=== PATIENT | male | born 1960 | race Caucasian/White ===

== ENCOUNTER 2021-04-28 01:03 | Outpatient (CLI) | payer BC, SELFPAY ==
[2021-04-28 10:57] LABS: Source Nasal/Nares
[2021-04-28 19:09] LABS: COVID-19 PCR Negative (Negative)
== END 2021-04-28 01:04 | disposition home or self-care (01) ==
LOC: LBO 01:04
PROVIDERS: PCP Family Medicine; Visit Provider Ophthalmology
DX: Z20.822 Contact with and (suspected) exposure to COVID-19 (principal); Z01.818 Encounter for other preprocedural examination
CPT/HCPCS: 87635

== ENCOUNTER 2021-05-01 11:11 | Day surgery (SDC) | payer BC, SELFPAY ==
[2021-05-01] MEDS: Tropicam./Phenyleph. (1/2.5%) 5 ML BTL OD ×3 (11:42→11:56)
[2021-05-01 11:44] VITALS: BP 137/81; PULSE 82; RESP 16; TEMP 36.8; O2SAT 97
--- NOTE | 2021-05-01 11:52 | W.ANESPRE ---
General Info Date of Service Date Performed: 05/01/21 Height: 5 ft 11 in Weight: 111.5 kg Body Mass Index (BMI): 34.2 Surgical Procedure: Operation Date: 05/01/21 14:40 Proposed Procedures Side Surgeon p Cataract Extraction with IOL Implant Right Chris Hernández MD Meds Allergies and Home Medications Allergies Allergy/AdvReac Type Severity Reaction Status Date / Time No Known Allergies Allergy Unverified 05/01/21 11:39 Home Medication Medication Instructions Recorded fenofibrate 160 mg PO DAILY 04/27/21 latanoprost 1 drp OPHTHALMIC (EYE) HS 04/27/21 lisinopril-hydrochlorothiazide 1 tab PO DAILY 04/27/21 multivitamin 1 tab PO DAILY 04/27/21 tamsulosin 0.8 mg PO HS 04/27/21 Current Visit Medications: Current Medications Generic Name Dose Route Start Last Admin Trade Name Freq PRN Reason Stop Dose Admin Acetaminophen 1,000 mg 05/01/21 06:00 Acetaminophen 500 Mg Tab PO Q4H PRN PRN Miscellaneous Medication 0 ml 05/01/21 06:00 Prednisolone 1%, Moxifloxacin 0.5%, Nepafenac 0.1% 5ml Btl OD DIRECTED ABDON Miscellaneous Medication 0 ml 05/01/21 06:00 05/01/21 11:47 Tropicam./Phenyleph. (1/2.5%) 5 Ml Btl OD 1 drp DIRECTED ABDON Administration Tetracaine HCl 0 ml 05/01/21 06:00 Tetracaine 0.5% 4 Ml Btl OD DIRECTED ABDON PFSH Medical History Medical History Actinic keratosis Enlarged prostate Pretty type 2a hyperlipoproteinemia Glaucoma Hypertensive disorder Knee pain Major depressive disorder, recurrent episode, in full remission Nicotine dependence Obesity Verruca vulgaris Surgical History Surgical History Hx of cataract surgery Hx of colonoscopy Tobacco Smoking/Tobacco Use Status: Current every day Tobacco Type: cigarettes Alcohol Alcohol Intake: never Substance Use Substance use: Never Substance use type: does not use Vital Signs and Lab Results Vital Signs Most Recent Vital Signs in EMR: Most Recent Vital Signs Temp Pulse Resp BP Pulse Ox 36.8 C 82 16 137/81 97 05/01/21 11:44 05/01/21 11:44 05/01/21 11:44 05/01/21 11:44 05/01/21 11:44 Lab Results Blood Type / Crossmatch: No Data to Display Complete Blood Count: No Data to Display Complete Metabolic Panel: No Data to Display Liver Function Panel: No Data to Display Coagulation Panel: No Data to Display Cardiac Panel: No Data to Display Arterial Blood Gas: No Data to Display Venous Blood Gas: No Data to Display Pancreas Panel: No Data to Display Thyroid Panel: No Data to Display Infectious Disease: Coronavirus (COVID-19)(PCR) Negative (Negative) 04/28/21 10:33 04/28/21 Coronavirus 2019 Source Nasal/Nares 04/28/21 10:33 04/28/21 Blood Cultures: No Data to Display Toxicology Panel: No Data to Display Anesthesia Assessment and Plan Anesthesia History Personal History: No History of Anesthesia Complications Family History: No Family History of Anesthesia Complications Exercise Tolerance Exercise Tolerance: Metabolic Equivalents>4 Pertinent Negatives Pertinent Negatives: No Symptoms of GERD Cardiac & Pulmonary Exam Cardiac Exam: Normal S1/S2 Heart Sounds Pulmonary Exam: Clear Bilateral Breath Sounds Implantable Cardiac Device Does patient have a Pacemaker or an ICD?: No Airway Exam Known Difficult Airway: No Mallampati Class: 3 Mouth Opening: Normal (> 3cm) Thyromental Distance: Greater than 3 cm Neck Range of Motion: Full ROM Neck Circumference: Normal Teeth Condition: Normal Dentition and Removable Dentures/Plates Upper ASA Classification ASA Score: ASA 2 Emergency Case?: No NPO Status NPO Status: NPO Clears >2 hours, Solids >8 hours Anesthesia Plan Resuscitation Status: Full Code Anesthesia Technique: MAC Anesthesia Airway Planned: Natural Airway Monitors Used: Standard Monitors
[2021-05-01 11:54] VITALS: BMI 34.2
[2021-05-01] MEDS: Tetracaine 0.5% 4 ML BTL OD (12:37)
[2021-05-01] MEDS: Balanced Salt Soln.-PLUS 500 ML BAG (12:38)
[2021-05-01] MEDS: Lidocaine 2% Jelly 6 ML SYR (12:38)
[2021-05-01] MEDS: Duovisc Viscoelastic System EACH 1 EACH (12:38)
[2021-05-01] MEDS: Povidone-Iodine Ophth 30 ML BTL (12:40)
[2021-05-01 12:57] VITALS: BP 144/78; PULSE 78; RESP 16; TEMP 37; O2SAT 93
--- NOTE | 2021-05-01 12:57 | W.PM.DSUDISC ---
Discharge Plan Disposition Patient Disposition: HOME Condition: Good Discharge Details Attending Provider: Chris Hernández Primary Care Provider: Daquan Li [place] Meds and New Rx's Prescriptions: No Action multivitamin Tablet 1 tab PO DAILY RF: 0 latanoprost 0.005 % Drops 1 drp ophthalmic (eye) HS RF: 0 tamsulosin 0.4 mg Capsule 0.8 mg PO HS RF: 0 lisinopril-hydrochlorothiazide 20-25 mg Tablet 1 tab PO DAILY RF: 0 fenofibrate 160 mg Tablet 160 mg PO DAILY RF: 0 Discharge Instructions Stand Alone Forms: Post-op Topical Cataract, Fernando Andres (DSU) Discharge Orders Discharge Orders: Discharge Order (Routine); Ordered 05/01/21 Ordered By: Chris Hernández DS: Diagnosis Discharge Diagnosis (1) Nuclear sclerotic cataract of right eye: Status: Resolved
--- NOTE | 2021-05-01 12:58 | ROE_ITS ---
Date of service: 05/01/21 Time of Service: 12:58 Operative Note Operative Note DATE OF PROCEDURE: 05/01/21 PRE-OP DIAGNOSIS: Nuclear cataract, right eye POST-OP DIAGNOSIS: same PROCEDURE: Cataract extraction using phacoemulsification with intraocular lens implant, right eye SURGEON: Chris Hernández ANESTHESIA TYPE: Local By Surgeon and MAC Refer to Anesthesia Record ESTIMATED BLOOD LOSS: 0 PATHOLOGY: none sent COMPLICATIONS: None Patient was transported to: same day Patient's condition: stable Implants: Mikh[employer] & Mikhail/APRKER Tecnis [id number] Indications: Progressive visual loss due to cataract, right eye Procedure Description: CATARACT SURGERY OPERATIVE REPORT PREOPERATIVE DIAGNOSIS: 1. Nuclear cataract, right eye POSTOPERATIVE DIAGNOSIS: Same OPERATION: 1. Cataract extraction using phacoemulsification with posterior chamber intraocular lens implant, right eye. IOL: IOL [employer] Director/Model: Mikh[employer] Mikhail / PARKER Tecnis [id number] IOL Power: + 20.50 diopters IOL Serial Number: [id number] Optic Diameter: 6.0mm Haptic/Overall Diameter: 13.0mm PHACO INFO: MaximoCapzlesurion Vision System with OZil and Active Fluidics Cumulative Dispersed Energy (CDE): 12.16 seconds SURGEON: Chris Hernández MD, UTE ANESTHESIA: Monitored Anesthesia Care (MAC), with local sub-tenon's anesthetic infiltration COMPLICATIONS: None SPECIMENS: None INDICATIONS FOR PROCEDURE: The patient is a 60-year-old gentleman with history of open-angle glaucoma who has previously undergone cataract surgery in his left eye several years ago. He has now developed asymptomatic nuclear cataract in his right eye. The option of cataract surgery was offered to the patient and he wished to proceed. PROCEDURE: The correct surgical eye was identified and marked as the right eye and the pupil was dilated in the preoperative area using mydriatics and cycloplegics. The dilated pupil size was 5.5 mm. . The patient was brought to the operating room where cardiopulmonary monitoring was instituted and surgical time-out was performed, confirming the correct operative eye and IOL power. Topical anesthesia was administered and ophthalmic povidone-iodine 5% was instilled into the conjunctival fornices. Lidocaine gel was applied to the cornea and the lacey-ocular area was prepped with Betadine 10% solution and draped in the usual sterile fashion for intraocular surgery, including an aperture drape. A Tegaderm transparent film dressing was cut in half and used to cover the lashes and lid margins. Care was taken to sequester the lashes and lid margins under the Tegaderm dressing. A lid speculum was placed between the lids of the operative eye and the Ananya-Maria Luz operating microscope was maneuvered into position. Pérez scissors were then used to make a conjunctival buttonhole approximately 6mm posterior to the limbus in the inferonasal quadrant. Blunt dissection was carried out to expose bare sclera, and a blunt-tipped sub-tenon?s anesthesia cannula was introduced and passed posteriorly along the globe where non- preserved plain lidocaine was injected into posterior sub-Tenon?s space. A sideport knife was used to make a paracentesis port inferotemporally. Intraocular phenylephrine/lidocaine was injected into the anterior chamber. The anterior chamber was filled with viscoelastic. A 2.4mm keratome knife was used to create a half-thickness groove at the limbus and then to construct a three- plane near-clear corneal tunnel extending 2.0mm into clear cornea superiortemporally. A flap was raised on the anterior capsule and capsulorhexis forceps were used to complete a continuous curvilinear capsulorhexis of 5.0mm. Balanced salt solution was then used to perform cortical cleaving hydrodissection and nuclear hydrodelineation until the lens could be freely rotated within the capsular bag. The lens nucleus was then disassembled and removed within the capsular bag and iris plane using phacoemulsification. Residual cortical material was removed using the I/A handpiece. The posterior capsule was carefully polished to remove as much residual lens epithelial cells as safely possible. The capsular bag was then inflated and the anterior chamber deepened with viscoelastic. The lens implant described above was inserted into the capsular bag using the PARKER Nikolai Injector. A Kuglen hook was used to dial the IOL into position. Residual viscoelastic was then removed first from posterior to the IOL, then from the anterior chamber using the I/A handpiece. The lens implant was noted to center nicely within the capsular bag. The incisions were stromally hydrated, and the anterior chamber was reformed using BSS. Then 0.5cc of moxifloxacin 1.0mg/ml were injected into the capsular bag and anterior chamber. The incisions were checked with a Weck spear and found to be secure. Several drops of ophthalmic povidone-iodine 5% were then applied to the eye followed by two drops of Imprimis combination prednisolone/moxifloxacin/nepafenac solution. The drapes were removed and a clear plastic protective eye shield was placed over the eye. The patient was then returned to [facility] in stable condition.
--- NOTE | 2021-05-01 13:06 | W.ANESPOSTOP ---
Postoperative Evaluation Date, Time and Location Date Performed: 05/01/21 Time Performed: 13:07 Patient Location: Day Surgery Unit Vital Signs Most Recent Imported Vital Signs: Most Recent Vital Signs Temp Pulse Resp BP Pulse Ox 36.8 C 82 16 137/81 97 05/01/21 11:44 05/01/21 11:44 05/01/21 11:44 05/01/21 11:44 05/01/21 11:44 Pain Score Most Recent Pain Score: Most Recent Pain Score Pain Level 0 05/01/21 11:44 Assessment Mental Status: Awake (Alert & Oriented to Patient Baseline) Airway and Respiratory Function: Patent airway with normal (patient baseline) respiratory exam Cardiovascular Function: Hemodynamically Stable Hydration Status: Adequately Hydrated Nausea & Vomiting: No Nausea or Vomiting Pain: Pt. Denies Any Pain Peripheral Nerve Block: Patient did not receive a nerve block
== END 2021-05-01 13:17 | disposition home or self-care (01) ==
PROVIDERS: PCP Family Medicine; Visit Provider Ophthalmology
PROC: (CPT 66984; principal; 2021-05-01 14:30)
DX: H25.11 Age-related nuclear cataract, right eye (principal); H40.9 Unspecified glaucoma; E78.00 Pure hypercholesterolemia, unspecified; F17.210 Nicotine dependence, cigarettes, uncomplicated; I10 Essential (primary) hypertension
CPT/HCPCS: 66984; V2632